=== PATIENT | female | born 1955 | race Caucasian/White ===

== ENCOUNTER 2017-05-05 12:36 | Emergency (ER) | payer OTHER ==
[~2017-05-05] VITALS: Ht 160 cm; Wt 49.0 kg
[~2017-05-05 12:36] MED LIST: CYCL-36 PO; IBUP600T26 PO
[2017-05-05 12:52] VITALS: PULSE 70; RESP 16; TEMP 97.7; O2SAT 96
[2017-05-05] MEDS ORDERED: BUPRENORPHINE SL (13:07)
--- NOTE | 2017-05-05 14:04 | PD ---
HPI Chief Complaint: Skin Problem Time Seen by Provider: 13:15 Travel History International Travel<30 days: No Contact w/Intl Traveler<30days: No Traveled to known affect area: No History of Present Illness HPI 61-year-old female with chief complaint of nonhealing wound to left lower extremity. Patient reports she had a possible insect bite to her left lower extremity 2-3 weeks ago. Over the last week she reports the area has become increasingly more painful, red and spontaneously started draining today. She denies fever/chills. She has not been seen or treated for this wound. She reports she has been cleansing the area with soap and water and applying triple antibiotic ointment. She denies history of IV drug abuse. PFSH Past Medical History Hx Anticoagulant Therapy: No Anxiety: Yes Depression: Yes Heart Rhythm Problems: Yes (STATES RHR ONCE (HR 90'S)) Cardiac Catheterization: No Cardiovascular Problems: No High Cholesterol: Yes Chemotherapy: No Congestive Heart Failure: No COPD: Yes Cerebrovascular Accident: No Diabetes: No Diminished Hearing: No Hepatitis: Yes (FROM FOOD A CHILD ) Hypertension: No Kidney Stones: Yes (HAS HAD LITHOTRIPSY) Musculoskeletal: Yes (CHRONIC BACK PAIN) Respiratory: Yes (COPD) Immunizations Current: No Myocardial Infarction: No Thyroid Disease: Yes ?: Not Menopausal: Yes Past Surgical History Coronary Artery Bypass Graft: No Genitourinary Surgery: Yes (LITHOTRIPSY) Gynecologic Surgery: Yes (LEEP PROCEDURE) Hysterectomy: No Other Surgery: Yes Social History Alcohol Use: No (QUIT 6 YRS AGO) Tobacco Use: Yes (1 PPD) Substance Use: Yes (narcotic abuse, in treatment currently) Allergies-Medications (Allergen,Severity, Reaction): Coded Allergies: Codeine (Verified Allergy, Mild, itching, 05/05/17) Reported Meds & Prescriptions Reported Meds & Active Scripts Active Reported [Buprenorphin] 8 Mg SL BID Review of Systems Except as stated in HPI: all other systems reviewed are Neg General / Constitutional: No: Fever Eyes: No: Visual changes HENT: No: Headaches Cardiovascular: No: Chest Pain or Discomfort Respiratory: No: Shortness of Breath Gastrointestinal: No: Abdominal Pain Genitourinary: No: Dysuria Skin: Positive Other (1.5 cm wound to the left lateral lower extremity) Physical Exam Narrative GENERAL: Well-nourished, well-developed patient. Disheveled appearing female SKIN: Focused skin assessment warm/dry. 1.5 cm diameter wound left lateral lower extremity superior to the ankle. The wound is open and draining serosanguineous drainage. The area is indurated without fluctuance. There is approximately 5 cm of surrounding erythema to the wound. No lymphangitis. HEAD: Normocephalic. EYES: No scleral icterus. No injection or drainage. NECK: Supple, trachea midline. No JVD or lymphadenopathy. CARDIOVASCULAR: Regular rate and rhythm without murmurs, gallops, or rubs. RESPIRATORY: Breath sounds equal bilaterally. No accessory muscle use. GASTROINTESTINAL: Abdomen soft, non-tender, nondistended. MUSCULOSKELETAL: No cyanosis, or edema. BACK: Nontender without obvious deformity. No CVA tenderness. Data Data Last Documented VS Vital Signs Date Time Temp Pulse Resp B/P Pulse Ox O2 Delivery O2 Flow Rate FiO2 05/05/17 12:52 97.7 70 16 96 Room Air MDM Medical Decision Making Medical Screen Exam Complete: Yes Emergency Medical Condition: Yes Differential Diagnosis Abscess, cellulitis, infected insect bite Narrative Course 61-year-old female with chief complaint of left lower extremity wound which has become increasingly more painful and red over the last week. Patient reports the area started as an insect bite approximately 2-3 weeks ago. She denies fever or chills. On physical exam she has a 1.5 cm diameter open shallow wound draining serosanguineous drainage. She has surrounding cellulitis. There is no fluctuance. She has no systemic signs of infection. Patient will be treated with oral antibiotics and close follow-up. Strict return precautions discussed. Patient verbalizes understanding and agrees to plan. Diagnosis Primary Impression: Cellulitis Qualified Code: L03.116 - Cellulitis of left lower extremity Additional Impression: Wound of lower extremity Qualified Code: S81.802A - Wound of left lower extremity, initial encounter Referrals: Primary Care Physician Additional Instructions: Take the antibiotics as prescribed. Take [id number] Motrin as needed for pain. Cleansed the area daily and keep it covered. Return to the emergency department if he developed new or worsening symptoms such as fever, chills, increased pain, increased redness, increased swelling. Scripts Cephalexin (Keflex)500 Mg [id number] Mg PO Q6H #40 CAP Prov:Vandana Cardoza NURSE ORTHO 05/05/17 Sulfamethoxazole-Trimethoprim (Bactrim DS)800-160 Mg Tab1 Tab PO BID #20 TAB Prov:Vandana Cardoza 05/05/17 Disposition: 01 DISCHARGE HOME Condition: Stable Vandana Cardoza May 05, 2017 14:04
[2017-05-05] MEDS ORDERED: CEPH-460 PO (14:11)
[2017-05-05] MEDS ORDERED: BACT800T5 PO (14:11)
[2017-05-06] MEDS ORDERED: BUPR8SUB SL (11:02)
== END 2017-05-05 14:44 | disposition home or self-care (01) ==
LOC: PHED 12:36
DX: L03.116 Cellulitis of left lower limb (principal); S81.802A Unspecified open wound, left lower leg, initial encounter; B95.0 Streptococcus, group A, as the cause of diseases classified elsewhere; E07.9 Disorder of thyroid, unspecified; E78.00 Pure hypercholesterolemia, unspecified; F17.200 Nicotine dependence, unspecified, uncomplicated; W57.XXXA Bitten or stung by nonvenomous insect and other nonvenomous arthropods, initial encounter; Z86.59 Personal history of other mental and behavioral disorders; Z86.79 Personal history of other diseases of the circulatory system; Z87.09 Personal history of other diseases of the respiratory system; Z87.442 Personal history of urinary calculi; Z87.39 Personal history of other diseases of the musculoskeletal system and connective tissue
CPT/HCPCS: 99284

== ENCOUNTER 2017-05-07 00:30 | Emergency (ER) | payer SELFPAY ==
[~2017-05-07] VITALS: Ht 160 cm; Wt 50.4 kg
[~2017-05-07 00:30] MED LIST changes: +BACT800T5 PO; +BUPR8SUB SL; +CEPH-460 PO; -CYCL-36 PO; -IBUP600T26 PO
[2017-05-07 00:36] VITALS: BP 136/77; PULSE 93; RESP 16; TEMP 98.4; O2SAT 99
[2017-05-07] MEDS ORDERED: CLINDAMYCIN INJ 600 MG in SODIUM CHLORIDE 0.9% INJ 100 ML IV ONE (01:15)
[2017-05-07] MEDS ORDERED: KETOROLAC TROMETHAMINE 30 MG/ML (IVP) VIAL IV PUSH ONE (01:15)
[2017-05-07] MEDS ORDERED: SODIUM CHLOR 0.9% 1000 ML INJ 1,000 ML IV ONE (01:15)
[2017-05-07] MEDS ORDERED: TETANUS/DIPHTHERIA TOXOID ADULT 0.5 ML VIAL IM ONE (01:15)
--- NOTE | 2017-05-07 01:52 | RADRPT ---
EXAM DATE/TIME: 05/07/2017 01:26 [facility] COMPARISON: No previous studies available for comparison. INDICATIONS : Swelling. MEDICAL HISTORY : None. SURGICAL HISTORY : None. ENCOUNTER: Initial ACUITY: 1 month PAIN SCORE: 8/10 LOCATION: Left ankle FINDINGS: Soft tissue swelling and apparent ulceration seen lateral to the distal shaft of the fibula. Bones of the left ankle are intact and normally aligned. No periosteal reaction or bone destruction seen. CONCLUSION: Lateral soft tissue swelling/ulceration as above. No acute bony abnormality. Juventino Aviles MD on May 07, 2017 at 1:50 Board Certified Radiologist. This report was verified electronically.
[2017-05-07 02:22] LABS: AUTOMATED NEUTROPHIL # 5.8 TH/MM3 (1.8-7.7); BASOPHIL # 0.1 TH/MM3 (0-0.2); BASOPHIL % 0.6 % (0.0-2.0); EOSINOPHIL # 0.1 TH/MM3 (0-0.4); EOSINOPHIL % 1.5 % (0.0-4.0); HEMATOCRIT 36.7 % (35.0-46.0); HEMO FLAGS DIFF FINAL; LYMPH % 22.8 % (9.0-44.0); MEAN CELL VOLUME 90.5 FL (80.0-100.0); MEAN CORPUSCULAR HEMOGLOBIN 29.7 PG (27.0-34.0); MEAN CORPUSCULAR HGB CONC 32.8 % (32.0-36.0); MONO % 7.9 % (0.0-8.0); NEUT % 67.2 % (16.0-70.0); PLATELET COUNT 306 TH/MM3 (150-450); RED BLOOD COUNT 4.06 MIL/MM3 (4.00-5.30); RED CELL DISTRIBUTION WIDTH 12.7 % (11.6-17.2); WHITE BLOOD COUNT 8.7 TH/MM3 (4.0-11.0)
[2017-05-07 02:28] LABS: POTASSIUM 4.2 MEQ/L (3.5-5.1)
[2017-05-07 02:31] LABS: BICARBONATE 29.4 MEQ/L (21.0-32.0)
--- NOTE | 2017-05-07 02:39 | PD ---
HPI Chief Complaint: Skin Problem Time Seen by Provider: 01:15 Travel History International Travel<30 days: No Contact w/Intl Traveler<30days: No Traveled to known affect area: No History of Present Illness HPI 61-year-old female presents to the emergency department for complaint of 2 weeks of left ankle pain with ulcerative lesion and swelling. Patient states that she may have suffered an insect bite or no- see'um mosquitoes and scratch the area aggressively causing an abrasion and subsequent ulceration and infection. Patient states symptoms have worsened over the past 2 weeks. Patient was just seen yesterday and prescribed Bactrim and Keflex. Patient states that she does not feel like the site is improving and has return to the emergency department for further evaluation. Patient denies fever chills ascending erythema or left groin adenopathy or tenderness. Patient denies any known injury except that she was bitten by mosquitoes. Patient states that pain is 8/10 intensity. Patient did start the antibiotic as prescribed. Patient has noted some clear drainage from the site. No purulent drainage. Patient reports her tetanus status is greater than 10 years. Patient is not diabetic. Patient denies other known injury. PFSH Past Medical History Narrative Medical Anxiety depression palpitations dyslipidemia COPD tobaccoism childhood hepatitis A hypothyroidism; tobacco use substance use; nursing notes reviewed Hx Anticoagulant Therapy: No Anxiety: Yes Depression: Yes Heart Rhythm Problems: Yes (STATES RHR ONCE (HR 90'S)) Cardiac Catheterization: No Cardiovascular Problems: No High Cholesterol: Yes Chemotherapy: No Congestive Heart Failure: No COPD: Yes Cerebrovascular Accident: No Diabetes: No Diminished Hearing: No Hepatitis: Yes (FROM FOOD A CHILD ) Hypertension: No Kidney Stones: Yes (HAS HAD LITHOTRIPSY) Musculoskeletal: Yes (CHRONIC BACK PAIN) Respiratory: Yes (COPD) Immunizations Current: No Myocardial Infarction: No Thyroid Disease: Yes ?: Not Menopausal: Yes Past Surgical History Coronary Artery Bypass Graft: No Genitourinary Surgery: Yes (LITHOTRIPSY) Gynecologic Surgery: Yes (LEEP PROCEDURE) Hysterectomy: No Other Surgery: Yes Social History Alcohol Use: No (QUIT 6 YRS AGO) Tobacco Use: Yes (1 PPD) Substance Use: Yes (narcotic abuse, in treatment currently) Allergies-Medications (Allergen,Severity, Reaction): Coded Allergies: Codeine (Verified Allergy, Mild, itching, 05/05/17) Reported Meds & Prescriptions Reported Meds & Active Scripts Active Keflex (Cephalexin) 500 Mg Cap 500 Mg PO Q6H Bactrim DS (Sulfamethoxazole-Trimethoprim) 800-160 Mg Tab 1 Tab PO BID Reported Buprenorphine (Buprenorphine HCl) 8 Mg Subl 8 Mg SL BID Review of Systems Except as stated in HPI: all other systems reviewed are Neg General / Constitutional: No: Fever, Chills HENT: No: Congestion Cardiovascular: No: Chest Pain or Discomfort Respiratory: No: Shortness of Breath Gastrointestinal: No: Vomiting, Abdominal Pain Genitourinary: No: Decreased Urinary Output, Flank Pain Musculoskeletal: Positive: Pain (left lateral ankle), No: Myalgias, Arthralgias, Limited ROM Skin: Positive Rash (left lateral ankle -- ulceration) Neurologic: No: Weakness Psychiatric: Positive: Anxiety Hematologic/Lymphatic: No: Lymph Node Enlargement Physical Exam Narrative GENERAL: Well-developed well-nourished thin disheveled female in no acute distress no respiratory distress SKIN: Warm and dry. HEAD: Normocephalic. EYES: No scleral icterus. No injection or drainage. NECK: Supple, trachea midline. No JVD or lymphadenopathy. CARDIOVASCULAR: Regular rate and rhythm without murmurs, gallops, or rubs. RESPIRATORY: Breath sounds equal bilaterally. No accessory muscle use. GASTROINTESTINAL: Abdomen soft, non-tender, nondistended. MUSCULOSKELETAL: No cyanosis, or edema. Attention left lower extremity left ankle lateral aspect just proximal to the lateral malleolus area of induration and erythema and ulceration 1.2 cm x 1.2 cm x 0.2 cm depth with serous nonpurulent spontaneous drainage without vesicle or pustule distally extremity is neurovascular tendon intact with 2+ dorsalis pedis pulse proximally there is no ascending erythema or left groin lymphadenopathy. BACK: Nontender without obvious deformity. No CVA tenderness. Data Data Last Documented VS Vital Signs Date Time Temp Pulse Resp B/P Pulse Ox O2 Delivery O2 Flow Rate FiO2 05/07/17 00:36 98.4 93 16 136/77 99 Orders Basic Metabolic Panel (Bmp) (05/07/17 01:15) Complete Blood Count With Diff (05/07/17 01:15) Blood Culture (05/07/17 01:15) Wound Culture And Gram Stain (05/07/17 01:15) Iv Access Insert/Monitor (05/07/17 01:15) Wound Care (05/07/17 01:15) Clindamycin Inj (Cleocin Inj) (05/07/17 01:15) Ketorolac Inj (Toradol Inj) (05/07/17 01:15) Sodium Chlor 0.9% 1000 Ml Inj (Ns 1000 M (05/07/17 01:15) Tetanus/Diphtheria Tox Adult (Tetanus/Di (05/07/17 01:15) Ankle, Complete ([id number]) (05/07/17 ) Labs Laboratory Tests Test 05/07/17 02:10 White Blood Count 8.7 TH/MM3 Red Blood Count 4.06 MIL/MM3 Hemoglobin 12.1 GM/DL Hematocrit 36.7 % Mean Corpuscular Volume 90.5 FL Mean Corpuscular Hemoglobin 29.7 PG Mean Corpuscular Hemoglobin 32.8 % Concent Red Cell Distribution Width 12.7 % Platelet Count 306 TH/MM3 Mean Platelet Volume 6.8 FL Neutrophils (%) (Auto) 67.2 % Lymphocytes (%) (Auto) 22.8 % Monocytes (%) (Auto) 7.9 % Eosinophils (%) (Auto) 1.5 % Basophils (%) (Auto) 0.6 % Neutrophils # (Auto) 5.8 TH/MM3 Lymphocytes # (Auto) 2.0 TH/MM3 Monocytes # (Auto) 0.7 TH/MM3 Eosinophils # (Auto) 0.1 TH/MM3 Basophils # (Auto) 0.1 TH/MM3 CBC Comment DIFF FINAL Differential Comment Sodium Level 138 MEQ/L Potassium Level 4.2 MEQ/L Chloride Level 102 MEQ/L Carbon Dioxide Level 29.4 MEQ/L Anion Gap 7 MEQ/L Blood Urea Nitrogen 10 MG/DL Creatinine 0.61 MG/DL Estimat Glomerular Filtration 100 ML/MIN Rate Random Glucose 92 MG/DL Calcium Level 9.3 MG/DL MDM Medical Decision Making Medical Screen Exam Complete: Yes Emergency Medical Condition: Yes Medical Record Reviewed: Yes Interpretation(s) Last Impressions Ankle X-Ray 05/07/17 0000 Signed Impressions: Service Date/Time: Sunday, May 07, 2017 01:26 - CONCLUSION: Lateral soft tissue swelling/ulceration as above. No acute bony abnormality. Juventino Aviles MD CBC & BMP Diagram 05/07/17 02:10 Vital Signs Date Time Temp Pulse Resp B/P Pulse Ox O2 Delivery O2 Flow Rate FiO2 05/07/17 00:36 98.4 93 16 136/77 99 Differential Diagnosis Cellulitis, pressure ulcer, also to consider puncture wound, retained foreign body, fracture, osteomyelitis Narrative Course Patient has taken one day of antibiotic as outpatient and returns as he does not feel like she has improved; IV access obtained and sent for resulting patient administered Toradol 30 mg IV 1 L normal saline and a one-time dose of clindamycin. Imaging shows no evidence of bony involvement and no retained foreign body; lab values are normal range; patient feels clinically improved; patient stable for outpatient management. Patient is encouraged to follow-up with the [facility] or his [facility] clinic as she does not have a primary care provider or to return to the emergency department for follow-up. Diagnosis Primary Impression: Cellulitis Qualified Code: L03.116 - Cellulitis of left lower extremity Referrals: [facility] call for appointment [facility] call for appointment Patient Instructions: General Instructions Additional Instructions: Elevate left lower extremity Avoid weight bearing on left lower extremity Complete course of antibiotic as previously prescribed Take acetaminophen/Tylenol every 4 hours as needed for fever 100.4F or greater May use ibuprofen/Advil/Motrin per package directions for fever 100.4F or greater or for pain associated with inflammation Return to the emergency department for any concerns or change in condition Keep one site clean and dry apply topical antibiotic ointment daily Med/Other Pt SpecificInfo: No Change to Meds Disposition: 01 DISCHARGE HOME Condition: Stable Ermelinda Tipton MD May 07, 2017 02:39
[2017-05-07 03:30] VITALS: BP 138/72
== END 2017-05-07 03:33 | disposition home or self-care (01) ==
LOC: PHED 00:30
DX: L03.116 Cellulitis of left lower limb (principal); B95.61 Methicillin susceptible Staphylococcus aureus infection as the cause of diseases classified elsewhere; B95.0 Streptococcus, group A, as the cause of diseases classified elsewhere; F17.200 Nicotine dependence, unspecified, uncomplicated; Z23 Encounter for immunization
CPT/HCPCS: 73610; 80048; 85025; 86403; 87040; 87070; 87186; 90471; 90714; 96365; 96375; 99284; J1885; J7030